=== PATIENT | female | born 1950 | race Caucasian/White ===

== ENCOUNTER → 2017-08-20 | Outpatient (CLI) | payer MEDICARE ==
[~2017-08-20] MED LIST: DIAZ5TAB4 PO; LISI2.5T PO; LOVA20TA2 PO; PROP10TA PO; TOPI100T8 PO
--- NOTE | 2017-08-21 08:46 | KCIC ---
DATE: 08/20/2017 EXAM: MAMMO PADDY SCREENING BILATERAL HISTORY: Screening COMPARISON: 09/08/2014 This study was interpreted with the benefit of Computerized Aided Detection (CAD). FINDINGS: Breast Density: FATTY The Breast Parenchyma is primarily fatty replaced. Breast parenchyma level density A.. There has been little change when compared to the previous exam IMPRESSION: Benign findings. BI-RADS CATEGORY: 2 BENIGN FINDING(S) RECOMMENDED FOLLOW-UP: 12M 12 MONTH FOLLOW-UP PQRS compliance statement: Patient information was entered into a reminder system with a target due date 08/20/2018 for the next mammogram. Mammography is a sensitive method for finding small breast cancers, but it does not detect them all and is not a substitute for careful clinical examination. A negative mammogram does not negate a clinically suspicious finding and should not result in delay in biopsying a clinically suspicious abnormality. "Our facility is accredited by the [employer] Mammography Program."
== END | disposition home or self-care (01) ==
LOC: KCIC MAMMO 16:55
PROVIDERS: ATTEND Family Medicine
DX: Z12.31 Encounter for screening mammogram for malignant neoplasm of breast (principal)
CPT/HCPCS: 77063; G0202; 77067

== ENCOUNTER → 2021-05-12 | Outpatient (CLI) | payer MEDICARE ==
--- NOTE | 2021-05-12 17:41 | KCIC ---
Bilateral knees 3 views each. HISTORY: Knee arthropathy, pain worse left knee, M 17.10 Left knee 3 views were taken of the left knee. There is joint space narrowing in the medial joint compartment o f the left knee with mild spurring. There is no fracture or joint effusion. There is slight spurring on the patella. Right knee 3 views were taken of the right knee. There is mild joint space narrowing and spurring in the medial joint compartment. There is no fracture or joint effusion. IMPRESSION: 1. Osteoarthritis in both knees. Electronically signed by: Darien Saez MD (05/12/2021 5:39 PM) [id number]
== END ==
LOC: KCIC 15:29
PROVIDERS: ATTEND Family Medicine
DX: M17.0 Bilateral primary osteoarthritis of knee (principal)
CPT/HCPCS: 73562-50